=== PATIENT | female | born 1980 | race Caucasian/White ===

== ENCOUNTER 2023-10-26 19:20 | Emergency (ER) | payer MEDICARE, MEDICAID, SELFPAY ==
[2023-10-26 20:24] VITALS: BP 137/85; PULSE 77; RESP 16; TEMP 37.6; O2SAT 99; BMI 28.9
[2023-10-26 23:48] VITALS: BP 149/88; PULSE 81; RESP 18; TEMP 36.4; O2SAT 100
--- NOTE | 2023-10-27 00:35 | ED_ITS ---
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 Earlier today, patient had a breast biopsy on the left. Today, her Steri-Strips fell off and they brought to the emergency room to get another Steri-Strips Related Data Allergies Allergy/AdvReac Type Severity Reaction Status Date / Time No Known Allergies Allergy Mild NOT Unverified 04/17/20 17:09 APPLICABLE Review of Systems Review of Systems: Constitutional : No Weight loss, No Fever, No Chills, No Night Sweats, No Fatigue, No Malaise ENT/Mouth : No Hearing loss, No Ear Pain, No Nasal Congestion, No Sinus Pain, No Hoarseness, No sore throat, No Rhinorrhea, No Swallowing Difficulty Eyes: No Eye Pain, No Swelling, No Redness, No Foreign Body, No Discharge, No Vision Changes Cardiovascular : No Chest Pain, No SOB, No Dyspnea on Exertion, No Orthopnea, No Edema, No Palpitations Respiratory : No Cough, No Sputum, No Wheezing, No Smoke Exposure, No Dyspnea Gastrointestinal : No Nausea, No Vomiting, No Diarrhea, No Constipation, No abdominal Pain, No Hematochezia, No Melena Genitourinary : no irregular bleeding, No Dysuria, No Urinary Frequency, No Hematuria, No Urinary Incontinence, No Urgency, No Flank Pain, No Urinary Flow Changes, No Hesitancy Musculoskeletal : No joint pain, No Myalgias, No Joint Swelling Skin : Breast biopsy today, Steri-Strips fell off Neuro : No Weakness, No Numbness, No Paresthesias, No Loss of Consciousness, No Dizziness, No Headache Psych : No Anxiety/Panic, No Depression, No SI/HI/AH/VH, No Social Issues, Heme/Lymph: No Bruising, No Bleeding,No Lymphadenopathy Endocrine : No Polyuria, No Polydipsia, No Temperature Intolerance PMFSH Social History Social History Smoked in Last 30 Days: No Use of substances other than those prescribed or required for medical reasons: No Advance Directives: No Advance Directives Information Provided: No Patient : No Physical Exam Vital Signs: Vital Signs: Last Vital Signs Temp 97.6 F 10/26/23 23:48 Pulse 81 10/26/23 23:48 Resp 18 10/26/23 23:48 BP 149/88 H 10/26/23 23:48 Pulse Ox 100 10/26/23 23:48 O2 Del Method Room Air 10/26/23 23:48 BMI result Body Mass Index 28.9 Const: Other: Appearance: Alert. Oriented X3. No acute distress. Eyes: Pupils equal, round and reactive to light. ENT: Pharynx normal. Neck: Normal inspection. Neck supple. No lymph nodes noted. No crepitus CVS: Normal heart rate and rhythm. Pulses normal. Normal S1 and S2 Respiratory: No respiratory distress. Breath sounds normal. No Wheezing. No rales Abdomen: Soft and nontender. No rigidity. No distention. Skin: Skin warm and dry. There is a 1 mm incision from the biopsy at the 3 o'clock position of the left breast, cleaned, no draining pus of serosanguineous fluid Extremities: No lower extremity edema. No Lacerations. No Rash Neuro: Oriented X 3. No motor deficit. No sensory deficit. Moving all extremities. No slurred speech. CN 2 through 12 grossly intact Psych: calm, cooperative, normal affect Medical Decision Making Medical Decision Making MDM Narrative: -skin was cleaned, no signs of infection, a Steri-Strip was applied -discussed with the staff that if the patient pulled off the Steri-Strips, to the same, clean and apply another Steri-Strips which was provided today halfway staff Discharge Plan Discharge Clinical Impression: Laceration Patient Disposition: Home, Self-Care Instructions: Laceration (ED) Additional Instructions: If the Steri-Strips, off, clean with alcohol, dry and covered with another cleaned Steri-Strips
[2023-10-27 00:59] VITALS: BP 132/68; PULSE 74; RESP 16; TEMP 36.1; O2SAT 98
== END 2023-10-27 01:00 | disposition home or self-care (01) ==
PROVIDERS: Emergency Provider Emergency Medicine
DX: Z48.01 Encounter for change or removal of surgical wound dressing (principal)
CPT/HCPCS: 99282; 99284